=== PATIENT | male | born 1965 | race Caucasian/White ===

== ENCOUNTER 2018-08-29 09:39 | Day surgery (SDC) | payer OTHER ==
[2018-08-29] MEDS ORDERED: MIDAZOLAM HCL 2MG/2ML VIAL IV ONE (09:40)
[2018-08-29] MEDS ORDERED: FENTANYL PF 100MCG/2ML VIAL IV ONE (09:40)
[2018-08-29] MEDS ORDERED: ONDANSETRON HCL IV 4 MG/2 ML VIAL IVP ONE (09:40)
[2018-08-29] MEDS ORDERED: DEXAMETHASONE 4 MG/ML 1ML VIAL IVP ONE ×2 (09:40)
[2018-08-29] MEDS ORDERED: BUPIVACAINE 0.25% MPF 30ML VIAL IVP ONE (09:40)
[2018-08-29] MEDS ORDERED: BUPIVACAINE LIPOSOME/PF 133MG/10ML VIAL IV ONE (09:40)
[2018-08-29] MEDS ORDERED: PROPOFOL 10 MG/ML VIAL IV ONE (09:40)
[2018-08-29] MEDS ORDERED: LIDOCAINE 2% MDV (20MG/ML) 20ML VIAL IV ONE (09:40)
[2018-08-29] MEDS ORDERED: SEVOFLURANE 250 ML INH ONE (09:40)
[2018-08-29] MEDS ORDERED: RINGERS SOLUTION,LACTATED 1,000 ML IV ONE (10:42)
[2018-08-29] MEDS ORDERED: EPINEPHRINE 1 MG/ML AMPUL SQ ONE (13:00)
--- NOTE | 2018-09-07 09:32 | Operative Note ---
DATE OF SURGERY: 08/29/2018 SURGEON: Diogo Guillen DO PREOPERATIVE DIAGNOSES: 1. Tear of the right rotator cuff. 2. Impingement syndrome, right shoulder. POSTOPERATIVE DIAGNOSES: 1. Tear of the right rotator cuff. 2. Impingement syndrome, right shoulder. 3. Tear of the glenoid labrum, right shoulder. OPERATION: 1. Arthroscopic repair of the right rotator cuff. 2. Arthroscopic subacromial decompression and acromioplasty of the right shoulder. 3. Arthroscopic debridement superior glenoid labrum, right shoulder. DESCRIPTION OF PROCEDURE: This 53-year-old male was taken to the operating room and placed in the supine position on the operating room table. A general anesthetic was administered, and the patient was placed in the beach chair position with all bony prominences well padded and head well secured. The right shoulder was prepped with Hibiclens and draped in the usual sterile fashion. A posterior portal was established in the right shoulder glenohumeral joint for initial evaluation, and we found marked fraying of the superior and some of the anterior glenoid labrum, which was debrided through an anterior portal. The undersurface of the rotator cuff was seen to be torn. There was almost a delamination type of injury. The loose fragments were debrided. The biceps tendon appeared to be normal, as did the glenohumeral ligaments. No articular cartilage defects were identified. The scope was then placed in the subacromial space, and thorough subacromial decompression and acromioplasty was performed. We were able to easily identify the tear, and this was thoroughly debrided from the bursal surface. We elevated the rotator cuff to see underneath it, and we could clearly see that there is a delamination type of tear. We felt that we could repair this with a modification of the Speedbridge technique. We therefore placed 2 SwiveLock suture anchors 4.75 mm, one with a TigerTape and one with a FiberTape, one at the anterior margin of the tear near the articular surface and the second at the posterior margin near the articular surface. These sutures were then passed through the rotator cuff. We attempted to get back as far as possible to get the healthiest bite of cuff tissue, and I think we were clearly past the delamination area. We then placed an additional horizontal mattress type suture in between the FiberTape and TigerTape as an additional supporting suture. A single limb of each one of these sutures was then grasped and placed through a 4th SwiveLock anchor which was placed inferior to the anterior anchor thus creating a double roll repair. We then placed this anchor in the appropriate position, placed traction on the sutures, and then the anchor was impaled. The remaining 3 tails of suture were then grasped and placed through a 4th SwiveLock anchor, and this was placed inferior to the posterior anchor and again traction was placed on these sutures to the remaining 3 tails of suture were then grasped and placed through a 4th SwiveLock anchor, and this was placed inferior to the posterior anchor and again traction was placed on these sutures to bring the cuff down to its anatomic insertion on the tuberosity. Once this had been satisfactorily positioned, the anchor was impaled. The sutures were then cut and the repair was seen to be satisfactory. The wound was irrigated and suctioned. Instruments were removed. The portals were closed with 4-0 nylon suture. Sterile dressings were applied with an UltraSling, and the patient was taken to the recovery room in satisfactory condition. GROSS PATHOLOGY: This patient had a severe tear of the supraspinatus tendon. The biceps appeared to be normal as were the glenohumeral ligaments. There was marked fraying of the superior and anterior aspect of the glenoid labrum. CC: DO NISSA Bryan
== END 2018-08-29 13:56 | disposition home or self-care (01) ==
LOC: SUR 09:39
PROVIDERS: ATTEND Orthopaedic Surgery
DX: M75.101 Unspecified rotator cuff tear or rupture of right shoulder, not specified as traumatic (principal); S43.431A Superior glenoid labrum lesion of right shoulder, initial encounter; M75.41 Impingement syndrome of right shoulder
CPT/HCPCS: 29827; 29826; 01630; 64415; J2405; J3010; C9290; 76942; J0171; J7120